=== PATIENT | female | born 1975 | race Caucasian/White ===

== ENCOUNTER 2023-08-11 00:24 | Day surgery (SDC) | payer SELFPAY ==
[2023-08-01 13:20] VITALS: BMI 19.9
--- NOTE | 2023-08-09 10:36 | SUR.PREOP ---
Patient called regarding upcoming procedure. Reviewed preop instructions, appointment times, and procedure prep.
[2023-08-11 14:03] VITALS: BP 115/98; PULSE 107; RESP 20; TEMP 36.3; O2SAT 100
--- NOTE | 2023-08-11 14:12 | WPDANESEPPF ---
Anes - Initial Pre Proc Eval Procedure: Operation Date: 08/11/23 15:00 Proposed Procedures p Colonoscopy - Delmer Huntley MD Date/Time: 08/11/23 14:12 Surgeon: Delmer Huntley MD Pre Op Diagnosis: abdominal pain, diarrhea Patient Data Age: 48 Gender: F Height: 1.6 m Weight: 50.1 kg Last Vital Signs Temp 97.3 F L 08/11/23 14:03 Pulse 107 H 08/11/23 14:03 Resp 20 08/11/23 14:03 BP 115/98 H 08/11/23 14:03 Pulse Ox 100 08/11/23 14:03 O2 Del Method Room Air 08/11/23 14:03 Allergies Allergy/AdvReac Type Severity Reaction Status Date / Time naproxen Allergy Hives Verified 08/11/23 14:00 Home Medications Medication Instructions Recorded Confirmed Type levothyroxine 75 mcg tablet 75 mcg PO DAILY 08/01/23 08/11/23 History Patient hx anesthesia problems: none Family hx anesthesia problems: none Results Review: All pre-operative results and documents have been reviewed as part of the pre-operative evaluation. [facility] Social History Social History Smoking packs per day: 1 Smoking cigarettes per day: 20.0 Years smoked: 40 Smoking pack-years: 40.00 Smoking status: Current every day smoker Tobacco type: cigarettes Alcohol intake: never Substance use: never Substance use type: does not use Living arrangements: with family Spiritual care concerns: No Anes - Eval Final PreProcedure Day of Procedure 08/11/23 14:12 Patient weight: normal Heart: regular rate and rhythm Lungs: clear to auscultation Airway: Mallampati scale class II Neurological: alert and oriented Last oral intake: >/= 8 hours ASA classification: II Emergent: no Anesthetic plan: proceed Anesthesia type and monitoring: general GIVS and standard monitoring Results Review: All pre-operative results and documents have been reviewed as part of the pre-operative evaluation. Informed Consent: The patient's anesthetic plan and its attendant risks and benefits were discussed with the patient/family/POA. Questions were solicited and answers provided to the satisfaction of the patient/family/POA.
[2023-08-11] MEDS: LACTATED RINGERS 1,000 ML 150 ML IV CONT (14:21)
--- NOTE | 2023-08-11 14:33 | PM.HPGS ---
History of Present Illness History of Present Illness Consent: Risks, benefits, and alternatives have been discussed and questions answered. Patient agrees to proceed with procedure. Chief complaint: abdominal pain, diarrhea Narrative: Silvana Palma is a 48 year old female here to attempt colonoscopy. About 6 months when she was in a trip to [place] had severe abdominal pain with colitis, after some time had attempt colonoscopy but GI doctor found sigmoid stricture - no records, then barium enema and more imaging ? complex lesion near uterus. She also noted more lower abdominal pain and change in bowel habits with more difficulty to have BM. Also weight loss ~ 20lb Review of Systems Review of Systems: All systems reviewed & are unremarkable except as noted in HPI and below PMFSH Past Medical History Medical History (Updated 08/11/23 @ 14:36 by Delmer Huntley MD) Abnormal stool caliber Lower abdominal pain Weight loss Social History Social History Smoking packs per day: 1 Smoking cigarettes per day: 20.0 Years smoked: 40 Smoking pack-years: 40.00 Smoking status: Current every day smoker Tobacco type: cigarettes Alcohol intake: never Substance use: never Substance use type: does not use Living arrangements: with family Spiritual care concerns: No Meds Home Medications and Allergies Home Medications Medication Instructions Recorded Confirmed Type levothyroxine 75 mcg tablet 75 mcg PO DAILY 08/01/23 08/11/23 History Allergies Allergy/AdvReac Type Severity Reaction Status Date / Time naproxen Allergy Hives Verified 08/11/23 14:00 Vital Signs Vital Signs - 24 hr 08/11/23 14:03 Temperature 97.3 F L Pulse Rate 107 H Respiratory Rate 20 Blood Pressure 115/98 H Pulse Oximetry 100 Oxygen Delivery Room Air Exam Const: General: comfortable and no acute distress HENMT: Face/Nose/Sinus: Normal nares present Eyes: General: appearance normal, both eyes and all related structures Neck: Neck: no JVD Resp: Auscultation: clear to auscultation bilaterally Cardio: Rate: regular rate Rhythm: regular rhythm GI: Inspection: non-distended GI Palp: Yes Soft to palpation Skin: General skin exam: normal color Neuro: General: gait normal Speech: normal speech Extrem: General: normal to inspection Psych: Mental Status: mental status grossly normal Assessment and Plan Assessment and plan (1) Abnormal stool caliber: Code(s): R19.5 - Other fecal abnormalities Status: Acute Assessment and Plan: given history we need to assess for malignancy, stricture, etc colonoscopy now (2) Lower abdominal pain: Code(s): R10.30 - Lower abdominal pain, unspecified Status: Acute (3) Weight loss: Code(s): R63.4 - Abnormal weight loss Status: Acute
[2023-08-11 14:52] VITALS: BP 115/60; PULSE 68; RESP 18; O2SAT 100
[2023-08-11 15:02] VITALS: BP 127/80; PULSE 62; RESP 18; O2SAT 100
[2023-08-11 15:12] VITALS: BP 120/73; PULSE 68; RESP 18; O2SAT 100
--- NOTE | 2023-08-11 15:47 | SUR.PHASEII ---
1525: PT REQUESTING TO GO TO EMERGENCY ROOM DUE TO DIAGNOSIS. PT SPOKE WITH DR HOPE AND HE'S IN AGREEANCE WITH PT GOING TO E.R. PT DENIES ANY PAIN. MOM AT BEDSIDE. RN SPOKE WITH DITTO MACHINE OPERATOR AND MADE AWARE. RN SPOKE WITH JUANCHO CHARGE NURSE IN E.R. JUANCHO AND DITTO MACHINE OPERATOR AGREED TO ALLOW PT TO GO TO E.R. IN WHEELCHAIR WITH IV ACCESS. PT UP TO WHEELCHAIR WITHOUT DIFFICULTY, IV ACCESS REMAINS IN PLACE, MOM AND ALL BELONGINGS REMAIN WITH PT, DELIVERED TO EMERGENCY ROOM, E.R. STAFF AWARE.
== END 2023-08-11 15:40 | disposition home or self-care (01) ==
PROVIDERS: Visit Provider Internal Medicine Gastroenterology
PROC: 0DJD8ZZ Inspection of Lower Intestinal Tract, Via Natural or Artificial Opening Endoscopic (ICD-10-PCS; CPT 45378; principal; 2023-08-11 15:00)
DX: K56.609 Unspecified intestinal obstruction, unspecified as to partial versus complete obstruction (principal); F17.210 Nicotine dependence, cigarettes, uncomplicated; R63.4 Abnormal weight loss; Z68.1 Body mass index [BMI] 19.9 or less, adult
CPT/HCPCS: 45330; 36415; 74177; 76830; 76856; 80053; 81001; 83690; 85025; 86301; 86304; 87086; 99284; J2001; J2704; J7120; Q9967

== ENCOUNTER 2023-08-11 15:42 | Emergency (ER) | payer SELFPAY ==
--- NOTE | ~2023-08-11 | US_ITS ---
EXAMINATION: US pelvic complete w TV DATE: 08/11/2023 20:29 INDICATION: Right adnexal mass. TECHNIQUE: Multiple transabdominal and transvaginal sonographic images of the pelvis were obtained. COMPARISON: CT abdomen and pelvis 08/11/23 FINDINGS: TRANSABDOMINAL ULTRASOUND: The uterus measures 7.0 x 3.6 x 4.3 cm. There is no free fluid in the pelvis. TRANSVAGINAL ULTRASOUND: The endometrial complex is not well visualized. There is a 5.2 x 4.1 x 3.3 cm heterogeneous solid and cystic mass at the right adnexa that is contiguous with the uterus. The ovaries are not identified. IMPRESSION: 1. Right adnexal mass. The differential diagnosis includes pelvic inflammatory disease, right ovarian malignancy, endometriosis, and chronic sigmoid diverticulitis. Reviewed, dictated and finalized at location E. ER MACHINE TENDER IMPRESSION: 1. Right adnexal mass. The differential diagnosis includes pelvic inflammatory disease, right ovarian malignancy, endometriosis, and chronic sigmoid diverticu litis.
--- NOTE | ~2023-08-11 | CT_ITS ---
EXAMINATION: CT abdomen pelvis w con DATE: 08/11/2023 18:07 INDICATION: Low abdominal pain. Colonic stenosis. TECHNIQUE: Computed tomography (CT) of the abdomen and pelvis was performed with 100 mL Omnipaque 350 intravenous contrast. Automated exposure control and iterative reconstruction technique were employe d. The dose-length product was 191.28 mGy-cm. COMPARISON: None. FINDINGS: The visualized portions of the lung bases are clear without pneumonia or pleural effusion. The heart size is normal. No pericardial effusion. The liver and spleen are normal. There are changes of cholecystectomy. The pancreas and adrenal glands are normal. The kidneys are normal. There are a few diverticula in the colon. There is wall thickening of the rectosigmoid. The appendix is normal. T here are no dilated loops of bowel. There is a calcified fibroid in the uterus. Left ovary is normal. There is a mass in the right adnexa that is not well differentiated from the uterus. The mass demons trates areas of cystic attenuation and soft tissue attenuation. The mass measures 5.7 x 3.0 x 7.2 cm. The mass abuts the sigmoid colon. There are no pathologically enlarged lymph nodes. There is physiol ogic fluid in the pelvis. There is mild lumbar spondylosis. IMPRESSION: 1. Right adnexal mass that abuts the sigmoid colon with wall thickening of the rectosigmoid. The diff erential diagnosis includes pelvic inflammatory disease, right ovarian malignancy, endometriosis, and chronic sigmoid diverticulitis. Reviewed, dictated and finalized at location E. RESIDENT IMPRESSION: 1. Right adnexal mass that abuts the sigmoid colon with wall thickening of the rectosigmoid. The differential diagnosis includes pelvic inflammatory disease, right ovarian malignancy, endometriosis, and chronic sigmoid diverticulitis.
[2023-08-11 15:58] VITALS: BP 121/77; PULSE 78; RESP 12; TEMP 35.5; O2SAT 100
[2023-08-11 16:15] LABS: Basophils Absolute Auto 0.1 K/mm3 (0.0-0.1); Basophils Percent Auto 0.5 % (0.2-1.2); Eosinophils Absolute Auto 0.1 K/mm3 (0-0.3); Hematocrit 43.4 % (37.0-47.0); Hemoglobin 14.2 g/dL (12.0-15.0); Immature Granulocyte Absolute 0.05 K/mm3 (0.00-0.031); Immature Granulocyte Percent A 0.4 % (0-0.5); Lymphocytes Absolute Auto 3.32 K/mm3 (0.9-3.2); Mean Corpuscular HGB Conc 32.7 g/dl (32-36); Mean Corpuscular Volume 88.8 fl (80-100); Monocytes Percent Auto 7.7 % (2.6-8.5); Neutrophils Absolute Auto 8.2 K/mm3 (1.3-6.7); Neutrophils Percent Auto 64.4 % (45.5-73.1); Platelet Count Result 433 k/mm3 (150-375); Red Blood Count 4.89 M/mm3 (4.2-5.4); Red Cell Distribution Width 14.9 % (11.5-14.5); White Blood Count 12.8 K/mm3 (4.5-10.0)
[2023-08-11 16:28] LABS: Alanine Aminotransferase 20 U/L (6-35); Albumin Level 4.5 g/dL (3.5-5.1); Alkaline Phosphatase 173 U/L (38-126); Anion Gap 11 mmol/L (8-16); Aspartate Amino Transferase 28 U/L (14-36); Bilirubin,Total 0.6 mg/dL (0.2-1.3); Blood Urea Nitrogen 18 mg/dL (7-17); Calcium 10.7 mg/dL (8.4-10.2); Carbon Dioxide 21 mmol/L (22-30); Chloride 107 mmol/L (98-107); Estimated Glomerular Filt Rate > 60; Glucose 91 mg/dL (65-110); Lipase 57 U/L (23-300); Potassium 4.1 mmol/L (3.4-5.0); Sodium 139 mmol/L (137-145)
--- NOTE | 2023-08-11 17:19 | ED.GENADULT ---
HPI - General Adult General Chief complaint: Unspecified <Zaire LaneBRIT spenceN - Last Filed: 08/11/23 17:46> Stated complaint: COLONIC STENOSIS FROM GI LAB <Zaire LaneBRIT spenceN - Last Filed: 08/11/23 17:46> Time Seen by Provider: 08/11/23 17:28 <Zaire ArevaloBRIT cordonN - Last Filed: 08/11/23 17:46> Focused HPI: Silvana is a 48-year-old female patient presenting to the ER today with complaints of chronic lower abdominal pain. She had a colonoscopy completed today-was unable to complete colonoscopy due to colonic stenosis. Dr. Luna notes reviewed. Patient reports that he sent her to the emergency room because he feels like she needs a general surgery consult. General: Well-developed, well nourished, in no apparent distress. Head: Normocephalic, atraumatic. Cardio: Regular rate and rhythm, s1 and s2 normal, no murmur appreciated. Resp: Clear to auscultation bilaterally, no rhonchi, rales, wheezing or rubs. Abdomen: Soft, pliable, bowel sounds present in all quadrants, tender to palpation over the bilateral lower abdomen with pain radiating into her back and pain over the pelvis, no organomegly, no CVAT tenderness. Patient screened in triage and initial orders placed. Additional care and disposition to be based upon diagnostic testing and treatment. <Zaire ArevaloBRIT cordonN - Last Filed: 08/11/23 17:46> Focused HPI: Silvana is a 48-year-old female patient presenting to the ER today with complaints of chronic lower abdominal pain. She had a colonoscopy completed today-was unable to complete colonoscopy due to colonic stenosis. Dr. Luna notes reviewed. Patient reports that he sent her to the emergency room because he feels like she needs a general surgery consult. General: Well-developed, well nourished, in no apparent distress. Head: Normocephalic, atraumatic. Cardio: Regular rate and rhythm, s1 and s2 normal, no murmur appreciated. Resp: Clear to auscultation bilaterally, no rhonchi, rales, wheezing or rubs. Abdomen: Soft, pliable, bowel sounds present in all quadrants, tender to palpation over the bilateral lower abdomen with pain radiating into her back and pain over the pelvis, no organomegly, no CVAT tenderness. Patient screened in triage and initial orders placed. Additional care and disposition to be based upon diagnostic testing and treatment. Patient was evaluated by me once she was brought back to room. Patient from me that she has been dealing with this since February of 2023. Patient initially went to an emergency department and had a CT scan which showed 2.2 x 2.3 cm right ovarian. Patient was sent to an OBGYN, Dr. Bui through [facility] for further evaluation. On July 08, 2023 patient had pelvic ultrasound at [facility] which revealed thought the ovarian mass now measures 3.6 x 3.3 x 4.6 cm. Patient states that OBGYN checked to different ovarian cancer tumor markers and 1 colorectal cancer tumor marker and states that her ovarian tumor markers were negative and her colorectal tumor marker was slightly elevated. Her her OBGYN does not believe that her pain is caused by this ovarian tumor/cyst and sent her for a GI evaluation obtain a colonoscopy. Patient was not able to get an appointment sooner than [address] [facility] and they ended up getting an appointment with our GI physician, Dr. Luna. Today, Dr. Luna attempted to perform a colonoscopy, not able to completed due to colonic stricture due to a pressing on. Dr. Luna sent for further evaluation possibly a surgery consultation. <Pilar Briceno MD - Last Filed: 08/11/23 22:27> Related Data Home medications: Home Medications Medication Instructions Recorded Confirmed levothyroxine 75 mcg tablet 75 mcg PO DAILY 08/01/23 08/11/23 <Zaire Howard APRN - Last Filed: 08/11/23 17:46> Allergies/adverse reactions: Allergies Allergy/AdvReac
[2023-08-11 18:14] VITALS: O2SAT 100
[2023-08-11 18:15] VITALS: RESP 16; O2SAT 99
[2023-08-11 19:13] VITALS: BP 114/72; PULSE 90; RESP 15; O2SAT 97
[2023-08-11 20:29] LABS: Appearance Urine Clear (Clear); Bacteria Urine Rare /hpf; Bilirubin Urine Negative (Negative); Blood Urine 1+ (Negative); Color Urine Yellow (Yellow); Glucose Urine UA Negative (Negative); Hyaline Casts Urine Present /lpf; Ketones Urine 1+ mg/dL (Negative); Leukocyte Esterase Ur Negative LEU/UL (Negative); Mucus Urine Present /lpf; Need Manual Microscopic Reviewed; Nitrate Urine Negative (Negative); Non Pathogenic Casts 0-2; Protein Urine 1+ mg/dL (Negative); Squamous Epithelial Cell Urine None seen /hpf (Few); Urobilinogen Urine 0.2 mg/dL (<2.0); pH Urine 5.5 (5.0-9.0)
[2023-08-11 20:36] LABS: Specific Grav Ur 1.092 (1.001-1.035)
[2023-08-11 20:37] LABS: Add Urine Microscopic? YES
[2023-08-11 22:38] VITALS: BP 136/76; PULSE 86; RESP 16; O2SAT 98
[2023-08-15 02:37] LABS: CA-125 14 U/mL (<35)
[2023-08-16 14:19] LABS: CA 19-9 14 U/mL (<34)
== END 2023-08-11 22:40 | disposition home or self-care (01) ==
PROVIDERS: Student in an Organized Health Care Education/Training Program; Emergency Provider Emergency Medicine
DX: R19.09 Other intra-abdominal and pelvic swelling, mass and lump (principal); K56.699 Other intestinal obstruction unspecified as to partial versus complete obstruction; R10.30 Lower abdominal pain, unspecified; F17.210 Nicotine dependence, cigarettes, uncomplicated
CPT/HCPCS: 36415; 74177; 76830; 76856; 80053; 81001; 83690; 85025; 86301; 86304; 87086; 87088; 99284; Q9967